=== PATIENT | female | born 1965 | race American Indian/Alaskan Native ===

== ENCOUNTER 2017-04-15 22:53 | Emergency (ER) | payer OTHER, MEDICAID ==
[~2017-04-15] VITALS: Ht 172.7 cm; Wt 77.1 kg
[~2017-04-15 22:53] MED LIST: HYDR-971 PO; OXYC-323 PO; TAMS0.4C97 PO
[2017-04-16] MEDS ORDERED: NAPR500T PO
[2017-04-16] MEDS ORDERED: CYCL10TA2 PO
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
[2017-04-16 00:05] VITALS: BP 133/87
[2017-04-16] MEDS ORDERED: HYDROcodone/APAP 5/325MG 1 TAB TABLET PO ONE (00:15)
[2017-04-16] MEDS ORDERED: CYCLOBENZAPRINE 10 MG TABLET. PO ONE (00:15)
== END 2017-04-16 00:08 | disposition home or self-care (01) ==
LOC: ER 22:53
DX: M54.6 Pain in thoracic spine (principal); M54.2 Cervicalgia; M25.512 Pain in left shoulder; Z88.5 Allergy status to narcotic agent; Z88.6 Allergy status to analgesic agent; Z88.8 Allergy status to other drugs, medicaments and biological substances; Z90.49 Acquired absence of other specified parts of digestive tract; Z90.710 Acquired absence of both cervix and uterus; Z98.51 Tubal ligation status; Z87.442 Personal history of urinary calculi; Z96.0 Presence of urogenital implants; V89.2XXA Person injured in unspecified motor-vehicle accident, traffic, initial encounter; Y93.89 Activity, other specified; Y99.8 Other external cause status; Y92.488 Other paved roadways as the place of occurrence of the external cause
CPT/HCPCS: 99283